=== PATIENT | male | born 1995 | race Caucasian/White ===

== ENCOUNTER 2018-08-24 11:48 | Emergency (ER) | payer SELFPAY ==
--- NOTE | 2018-08-24 13:07 | RAD ---
LEFT KNEE FOUR VIEWS: History: Twisting injury. Pain. Comparison: None. FINDINGS: No joint effusion. No fracture or malalignment. Joint spaces are preserved. IMPRESSION: No post-traumatic change. POS: JEAN [facility]UDE
== END 2018-08-24 12:58 | disposition home or self-care (01) ==
LOC: ERS 11:48
DX: S83.92XA Sprain of unspecified site of left knee, initial encounter (principal); Z71.6 Tobacco abuse counseling; F41.9 Anxiety disorder, unspecified; F90.9 Attention-deficit hyperactivity disorder, unspecified type; F17.210 Nicotine dependence, cigarettes, uncomplicated; X50.1XXA Overexertion from prolonged static or awkward postures, initial encounter
CPT/HCPCS: 99406

== ENCOUNTER → 2019-08-01 | Day surgery (SDC) | payer SELFPAY ==
[~2019-08-01] MED LIST: Bupivacaine HCl 0.5%/Epinephrine 1:200,000/PF 30 ml Vial ONE; CEFAZOLIN 2 GM in Premix Bag 1 BAG IVPB SCH; Fentanyl 100 MCG/2 ML VIAL ONE; Ketamine 50 MG/ML (10ML VIAL) ONE; Ketorolac Tromethamine 30 MG/ML VIAL IVP PRN; Ketorolac Tromethamine 30 MG/ML VIAL ONE; Lidocaine 1% PF 5 ML VIAL ONE; Midazolam HCl 2 mg/2 ml Vial ONE; Morphine 2 MG/ML SYRINGE SLOW IVP PRN; Morphine 4 MG/ML VIAL ONE; Morphine 4 MG/ML VIAL SLOW IVP PRN; Ondansetron PF 4 MG/2 ML Vial ONE; PROPOFOL 200 MG/20 ML VIAL ONE
--- NOTE | 2019-08-01 08:46 | RAD ---
XR Ankle Rt 3 View STANDARD History: Injury Comparison: None. Findings: Fracture dislocation of the ankle with posterior displacement of the talus relative to the tibia as well as a fracture of the posterior malleolus and medial malleolus. Posterior displacement is approximately 2.5 cm. Impression: Posterior tibiotalar fracture dislocation. Syndesmotic ligaments are also likely torn.
[2019-08-01 09:47] LABS: #Lymphocytes 0.8 thou/uL (1.20-3.40); #Monocytes 1.4 thou/uL (0.11-0.59); #Neutrophils 14.5 thou/uL (1.40-6.50); %Basophils 0.1 % (0.0-1.0); %Eosinophils 0.1 % (0.0-10.0); %Lymphocytes 4.5 % (21.0-51.0); %Monocytes 8.1 % (0.0-10.0); %Neutrophils 87.2 % (42.0-75.0); Mean Corpuscular HGB CONC 33.3 g/dL (32.0-36.0); Mean Corpuscular Hemoglobin 31.1 pg (27.0-31.0); Mean Corpuscular Volume 93.5 fL (78.0-98.0); Mean Platelet Volume 8.1 fL (7.4-10.4); Platelet Count 269 thou/uL (130-400); RBC Distribution Width 11.7 % (11.5-14.5); Red Blood Cell (RBC) Count 5.15 mill/uL (4.70-6.10); White Blood Cell (WBC) Count 16.6 thou/uL (4.8-10.8)
[2019-08-01 10:16] LABS: ALT (SGPT) 26 U/L (8-55); AST (SGOT) 20 U/L (5-34); Alkaline Phosphatase 81 U/L (40-110); Anion Gap 16 mmol/L (10-20); BUN (Urea Nitrogen) 9 mg/dL (8.9-20.6); Bilirubin, Total 0.7 mg/dL (0.2-1.2); Calc. Creatinine Clearance 0 mL/min (70-130); Calcium 9.9 mg/dL (7.8-10.44); Carbon Dioxide 25 mmol/L (22-29); Chloride 104 mmol/L (98-107); Estimated GFR-MDRD Greater than 90; Globulin 2.8 g/dL (2.4-3.5); Glucose 121 mg/dL (70-105); Potassium 4.1 mmol/L (3.5-5.1); Protein, Total 7.8 g/dL (6.0-8.3); Sodium 141 mmol/L (136-145)
--- NOTE | 2019-08-01 11:46 | RAD ---
XR Ankle Rt 3 View STANDARD History: Post reduction Comparison: Radiograph same day Findings: Improved alignment posterior dislocation. Posterior malleolar fracture is similar. Mild lat eral talar shift. Impression: Improved postreduction alignment.
--- NOTE | 2019-08-01 13:44 | CON ---
DATE OF CONSULTATION: CHIEF COMPLAINT: Right ankle pain. HISTORY OF PRESENT ILLNESS: Yung is a 23-year-old male, who was out skateboarding this morning. He was trying to do a trick. He landed awkwardly and rolled his ankle. He sustained pain and swelling of the ankle. He was taken to the emergency department. X-rays have demonstrated a right ankle fracture and dislocation with posterior malleolus and syndesmosis disruption. Orthopedics was consulted for this injury. The patient is currently resting comfortably. He has received pain medications in the emergency department. PAST MEDICAL HISTORY: Negative except for remote history of ADHD. PAST SURGICAL HISTORY: Negative. MEDICATIONS: None. SOCIAL HISTORY: The patient denies active tobacco, alcohol, or drug use. REVIEW OF SYSTEMS: Positive for right ankle pain. Otherwise, negative 10-point review of systems. IMAGING STUDIES: X-rays of the right ankle demonstrate a posterior malleolar fracture with posterior displacement and dislocation of the talus again posteriorly. There is also widening of the syndesmosis joint with open medial clear space. PHYSICAL EXAMINATION: VITAL SIGNS: Stable. The patient is afebrile, normotensive, 98% on room air. GENERAL: He is alert and oriented, in no apparent distress. HEENT: Normocephalic and atraumatic. RESPIRATORY: Breathing comfortably. ABDOMEN: Soft, nontender, and nondistended. MUSCULOSKELETAL: The patient's right lower extremity has intact skin. He does have edema and ecchymosis. He has pain with ankle motion. He is able to flex and extend the toes. He has a palpable dorsalis pedis pulse. IMPRESSION: Right unstable posterior malleolar fracture with syndesmosis disruption. PLAN: The patient will need to go to the operating room for open reduction and internal fixation of his posterior malleolus fracture. We will plan for a posterior buttress plate. He will likely also need syndesmosis fixation to restore the stability of his ankle. We will do this today. He will be splinted and reduced in the emergency department on a temporary basis. He will have pain control. He will have antibiotics and DVT prophylaxis as needed. He will likely be able to go home today after surgery. Job ID: [id number]
--- NOTE | 2019-08-01 20:55 | RAD ---
RIGHT ANKLE TWO VIEW: HISTORY: ORIF. COMPARISON: Ankle radiograph from the same day. FINDINGS: There are two syndesmotic screws through the tib/fib. There is a posterior plate and screw fixation t hrough the posterior malleolar fracture. IMPRESSION: Satisfactory postoperative appearance. POS: HOME
--- NOTE | 2019-08-02 09:19 | OP ---
DATE OF PROCEDURE: 08/01/2019 OPERATION: Open reduction internal fixation of right posterior malleolus fracture and syndesmosis fixation of right ankle. PREOPERATIVE DIAGNOSIS: Displaced and unstable right ankle fracture. POSTOPERATIVE DIAGNOSIS: Displaced and unstable right ankle fracture. COMPLICATIONS: None. ESTIMATED BLOOD LOSS: Minimal. ANESTHESIA: General plus local. IMPLANTS: Synthes posterior malleolus plate with multiple locking screws as well as two 4.0 mm screws. INDICATIONS: Yung is a 23-year-old male, who was skateboarding. He fell and fractured his right ankle. He was indicated for open reduction internal fixation to restore anatomic alignment and promote healing. Risks have been reviewed in detail. He has elected to proceed with the operation. DESCRIPTION OF PROCEDURE: Mr. Barragan was identified in the preoperative holding area. His correct extremity was marked. He was carried to the operating room. He was positioned supine. General anesthesia was induced. A multidisciplinary time-out was performed. The right lower extremity was prepped and draped in a sterile fashion. We began the procedure with a longitudinal incision over the posterolateral ankle. We dissected down through the subcutaneous tissues to the fascia overlying the peroneal tendons. The fascia was opened. We developed the interval medial to the peroneal tendons. This brought us down to the tibial bone. We encountered the displaced posterior malleolus fracture. We irrigated the bony edges and reduced the fracture holding this with a K-wire. Once we had adequate fixation, we proceeded to place our posterior malleolar plate. A compression screw was placed through the plate, followed by multiple locking screws distally and proximally, locking the plate to the bone. Our reduction was anatomic. At this point, we took further x-ray imaging. We identified that the syndesmosis was still unstable. We decided to proceed with syndesmosis fixation. We then placed a clamp across the syndesmosis and assessed our reduction with x-ray. Next, we placed two 4.0 mm screws across the syndesmosis through the fibula into the tibia. This rigidly fixed the syndesmosis. We repeated a stress view x-ray, which was negative at this point. We took final images. We thoroughly irrigated with copious lavage. We then closed appropriately in layers and placed a splint. The patient was taken to the recovery room in good condition. Job ID: [id number]
== END ==
LOC: ERS 08:20 → SDC/OP 16:50
PROVIDERS: ATTEND Orthopaedic Surgery
PROC: 0QSG04Z Reposition Right Tibia with Internal Fixation Device, Open Approach (ICD-10-PCS; principal; 2019-08-01)
DX: S82.51XA Displaced fracture of medial malleolus of right tibia, initial encounter for closed fracture (principal); V00.131A Fall from skateboard, initial encounter; Y93.51 Activity, roller skating (inline) and skateboarding; Z87.891 Personal history of nicotine dependence
CPT/HCPCS: 76000; 80053; 85025; C1713; J0670; J0690; J2250; J2270; J3010